=== PATIENT | female | born 1980 | race Caucasian/White ===

== ENCOUNTER → 2016-03-02 | Outpatient (CLI) | payer MEDICAID ==
--- NOTE | 2016-03-02 14:30 | US ---
Bilateral Thyroid Ultrasound INDICATION: Hypothyroidism. TECHNIQUE: Bilateral thyroid ultrasound is performed. COMPARISON: August 05, 2015. FINDINGS: Right thyroid gland measures 4.3 x 1.2 x 1.3 cm. Left thyroid gland measures 3 x 0.9 x 1.2 cm. There is a small nodule that is hypoechoic, 0.8 x 0.4 x 0.3 cm at the junction of the right thyro id gland and the isthmus that is not vascular. Glands otherwise are homogeneous. IMPRESSION: Interval decrease in size and vascularity of hypoechoic nodule at the junction of the rig ht thyroid gland and thyroid isthmus.
== END ==
LOC: BRMIMAGING 11:29
PROVIDERS: ATTEND Nurse Practitioner
DX: E03.9 Hypothyroidism, unspecified (principal); E06.3 Autoimmune thyroiditis; R53.83 Other fatigue
CPT/HCPCS: 80053-PO; 82306-PO; 84439-PO; 84443-PO; 84481-PO; 84482-90; 85025-PO; 86141-90; 86376-90; 86800-90

== ENCOUNTER → 2016-03-06 | Outpatient (CLI) | payer MEDICAID ==
--- NOTE | 2016-03-06 13:49 | US ---
Transabdominal and Transvaginal Pelvic Ultrasound History: 35-year-old with left-sided pain for several months, LMP February 12, 2016. Comparison: None available. Findings: Transabdominal: The uterus measures 7.4 x 4.5 x 4.6 cm. The ovaries are not visible. The bladder is normal. Transvaginal: There is an intramural 1.7 x 1.9 x 3.0 cm fibroid in the right inferior uterus. There i s a subserosal 2.9 x 2.4 x 2.8 cm fibroid in the right uterine fundus. The endometrium is homogeneous and measures 13 mm. The left ovary measures 3.1 x 3.4 x 2.1 cm. A probable corpus luteum is noted in the left ovary. The right ovary is not visible. No adnexal masses are identified. Normal arterial bl ood flow is documented to both ovaries by Doppler ultrasound. There is a small amount of free fluid. Impression: 1. Fibroid uterus with the largest fibroid measuring 3.0 cm. 2. Nonvisualization of the right ovary.
== END ==
LOC: BRMIMAGING 11:37
PROVIDERS: ATTEND Nurse Practitioner
DX: R10.32 Left lower quadrant pain (principal); D25.9 Leiomyoma of uterus, unspecified
CPT/HCPCS: 76856-PO

== ENCOUNTER → 2016-09-03 | Outpatient (CLI) | payer MEDICAID | LOC: CIMAGING 13:39 | PROVIDERS: ATTEND Nurse Practitioner | DX: Z85.850 Personal history of malignant neoplasm of thyroid (principal); E06.3 Autoimmune thyroiditis; Z90.89 Acquired absence of other organs | CPT/HCPCS: 76536-PO ==

== ENCOUNTER → 2017-10-10 | Outpatient (CLI) | payer MEDICAID | LOC: FIMAGING 12:16 | PROVIDERS: ATTEND Nurse Practitioner | DX: C73 Malignant neoplasm of thyroid gland (principal); E06.3 Autoimmune thyroiditis ==